=== PATIENT | female | born 1960 | race Caucasian/White ===

== ENCOUNTER 2019-02-02 10:42 | Day surgery (SDC) | payer BC ==
[2019-01-27 15:21] VITALS: BMI 33.3
[2019-02-02] MEDS ORDERED: PROPOFOL 20 ML ONE (12:18)
[2019-02-02 17:14] VITALS: TEMP 97.9
[2019-02-02 17:23] VITALS: BP 110/58; PULSE 79
--- NOTE | 2019-02-04 16:15 | PATH ---
Surgical Pathology Report Patient Name: MIRNA LANDERS [facility]. Rec. #: [id number] /Age/Gender: 1960 (Age: 58) / F Account: [id number] Location: [facility] Taken: 02/02/2019 Received: 02/02/2019 Reported: 02/04/2019 Physicians: Lydia Rand M.D. Specimen(s) Received A: SECOND PORTION OF DUODENUM B: ANTRUM C: GE JUNCTION Clinical History Epigastric pain Postoperative diagnosis: Ulcers, gastritis, hiatal hernia Final Diagnosis A. SECOND PORTION OF DUODENUM, BIOPSY: DUODENAL MUCOSA WITH NO PATHOLOGIC FINDINGS. B. GASTRIC ANTRUM, BIOPSY: MILD CHRONIC GASTRITIS. IMMUNOSTAIN IS NEGATIVE FOR H. PYLORI ORGANISMS. C. 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 NEGATIVE FOR DYSPLASIA. Electronically Signed Lori Luo M.D. Gross Description A. Received in formalin, labeled "biopsy second portion of duodenum" is a sorensen, irregular portion of soft tissue measuring 0.3 cm. in greatest dimension. The specimen is submitted in toto in one cassette. B. Received in formalin, labeled "biopsy gastric antrum" is a sorensen, irregular portion of soft tissue measuring 0.4 cm. in greatest dimension. The specimen is submitted in toto in one cassette. C. Received in formalin, labeled "biopsy GE junction" is a sorensen, irregular portion of soft tissue measuring 0.3 cm. in greatest dimension. The specimen is submitted in toto in one cassette. 02/03/2019 [place]02/03/2019
== END 2019-02-02 14:20 | disposition home or self-care (01) ==
LOC: FASU-ENDO 10:42
PROVIDERS: ATTEND Internal Medicine Gastroenterology
PROC: 0DB68ZX Excision of Stomach, Via Natural or Artificial Opening Endoscopic, Diagnostic (ICD-10-PCS; 2019-02-02)
PROC: 0DB48ZX Excision of Esophagogastric Junction, Via Natural or Artificial Opening Endoscopic, Diagnostic (ICD-10-PCS; 2019-02-02)
PROC: 0DB98ZX Excision of Duodenum, Via Natural or Artificial Opening Endoscopic, Diagnostic (ICD-10-PCS; principal; 2019-02-02 13:07)
DX: K29.50 Unspecified chronic gastritis without bleeding (principal); K25.9 Gastric ulcer, unspecified as acute or chronic, without hemorrhage or perforation; K44.9 Diaphragmatic hernia without obstruction or gangrene; R10.13 Epigastric pain; K31.89 Other diseases of stomach and duodenum
CPT/HCPCS: 88305-TC; 88342-TC

== ENCOUNTER 2019-04-20 10:56 | Day surgery (SDC) | payer BC ==
[2019-04-19 11:47] VITALS: BMI 34.3
[2019-04-20] MEDS ORDERED: PROPOFOL 20 ML ONE ×2 (11:14)
[2019-04-20 14:43] VITALS: BP 138/85; PULSE 82; TEMP 98
--- NOTE | 2019-04-22 09:38 | PATH ---
Surgical Pathology Report Patient Name: MIRNA LANDERS [facility]. Rec. #: [id number] /Age/Gender: 1960 (Age: 58) / F Account: [id number] Location: [facility] Taken: 04/20/2019 Received: 04/20/2019 Reported: 04/22/2019 Physicians: Ldyia Rand M.D. Specimen(s) Received POLYP SIGMOID COLON X2 Clinical History Abdominal pain Postoperative diagnosis: Polyps, hemorrhoids Final Diagnosis COLON, SIGMOID, BIOPSY: HYPERPLASTIC POLYPS (2). Electronically Signed Jamal Pierce M.D. Gross Description Received in formalin, labeled "polyp x2 sigmoid colon" are 2 sorensen, irregular portions of soft tissue measuring 0.1 and 0.3 cm. in greatest dimension. The specimens are submitted in toto in one cassette. /04/21/2019 [facility]04/21/2019
== END 2019-04-20 14:43 | disposition home or self-care (01) ==
LOC: FASU-ENDO 10:56
PROVIDERS: ATTEND Internal Medicine Gastroenterology
PROC: 0DBN8ZX Excision of Sigmoid Colon, Via Natural or Artificial Opening Endoscopic, Diagnostic (ICD-10-PCS; principal; 2019-04-20 12:50)
DX: Z12.11 Encounter for screening for malignant neoplasm of colon (principal); D12.5 Benign neoplasm of sigmoid colon; K64.2 Third degree hemorrhoids
CPT/HCPCS: 88305-TC